=== PATIENT | female | born 1970 | race Caucasian/White ===

== ENCOUNTER 2021-01-21 12:45 | Emergency (ER) | payer MEDICAID ==
[2021-01-21 13:14] VITALS: BP 121/80; PULSE 71
[2021-01-21] MEDS ORDERED: Acetaminophen/oxyCODONE 325-5 MG Tab PO ONE (13:23)
--- NOTE | 2021-01-21 13:23 | EDM.PDOC ---
ED HPI GENERAL MEDICAL PROBLEM - General Chief Complaint: ENT Problem Stated Complaint: SORE THROAT Time Seen by Provider: 01/21/21 13:15 Source of Information: Reports: Patient History Limitations: Reports: No Limitations - History of Present Illness INITIAL COMMENTS - FREE TEXT/NARRATIVE: 50-year-old female presents to the ED with a 2-day history of gradually worsening throat pain. Pain is radiating up into both ears worse on the left side as compared to the right. Pain also radiates down the lateral aspect of her throat and anterior lateral neck. Very difficult and painful to swallow. She still has her tonsils. No noted fever. She is coughing intermittently but she states is due to accumulation of mucus in her throat not from her lungs. She recently finished a course of antibiotics i.e. cephalexin for cellulitis lower extremity. She had 3 tablets left over which she has taken in the last day. Therefore throat culture was not obtained Onset: Sudden Onset Date: 01/19/21 Duration: Hour(s): Location: Reports: Head (Anterior lateral neck bilaterally and up into her ears.), Face, Neck Quality: Reports: Ache (Throat pain), Burning, Stabbing (Sharp and stabbing) Severity: Moderate (7-8 out of 10) Improves with: Reports: None (Has tried Tylenol without much relief of the pain) Worsens with: Reports: Other (Trying to eat or swallow) Context: Denies: Activity, Exercise, Lifting, Sick Contact, Trauma, Other Associated Symptoms: Reports: Cough, cough w sputum (Bringing up some phlegm from the back of her throat.). Denies: No Other Symptoms, Confusion, Chest Pain, Diaphoresis, Fever/Chills, Headaches, Loss of Appetite, Malaise, Nausea/Vomiting, Rash, Seizure, Shortness of Breath, Syncope, Weakness Treatments [employer]: Reports: Acetaminophen Throat Pain Score (Numeric/FACES): 7 - Related Data Allergies Allergy/AdvReac Type Severity Reaction Status Date / Time latex Allergy Hives Verified 01/21/21 13:14 Home Meds: Home Meds Amoxicillin/Clavulanate K [Augmentin 500-125 MG] 1 tab PO BID #20 tablet 01/21/21 [Rx] oxyCODONE HCl/Acetaminophen [Percocet 5-325 mg Tablet] 1 - 2 each PO Q4H PRN #16 tablet 01/21/21 [Rx] Past Medical History - Past Health History Medical/Surgical History: Denies Medical/Surgical History Respiratory History: Reports: Sleep Apnea Musculoskeletal History: Reports: Osteoarthritis Endocrine/Metabolic History: Reports: Obesity/BMI 30+ Social & Family History - Living Situation & Occupation Living situation: Reports: Single Occupation: Unemployed ED ROS ENT - Review of Systems Review Of Systems: See Below Constitutional: Reports: Decreased Appetite. Denies: Fever, Chills, Malaise, Weakness, Fatigue, Weight Loss HEENT: Reports: Ear Pain (Pain radiates up into both ears worse on the left side as compared to the right), Throat Pain, Throat Swelling. Denies: Sinus Problem Respiratory: Reports: Shortness of Breath. Denies: Wheezing, Pleuritic Chest Pain (Chronically), Cough, Sputum, Hemoptysis Cardiovascular: Denies: Chest Pain, Blood Pressure Problem, Claudication, Dyspnea on Exertion, Edema, Lightheadedness, Orthopnea Endocrine: Reports: Fatigue GI/Abdominal: Reports: No Symptoms : Reports: Frequency, Incontinence (Stress incontinence), Urgency Musculoskeletal: Reports: Joint Pain (Knees hips low back neck at times) Skin: Reports: No Symptoms Neurological: Reports: No Symptoms Hematologic/Lymphatic: Reports: No Symptoms Immunologic: Reports: No Symptoms ED EXAM, ENT - Physical Exam Exam: See Below Exam Limited By: No Limitations General Appearance: Alert, WD/WN, No Apparent Distress, Other Eye Exam: Bilateral Eye: Normal Inspection, PERRL Mouth/Throat: Pharyngeal Erythema (Diffuse pharyngeal erythema particular across the soft palate and swollen uvula.), Throat Pain, Tonsillar Erythema, Tonsillar Exudates, Tonsillar Swelling, Other (Superficial almost ulcerations across the soft palate as if she is taking some Maalox that coated these areas. The only appreciated on the soft palate however) Head: Atraumatic, Normocephalic Neck: Normal Inspection, Supple, Non-Tender, Lymphadenopathy (L), Lymphadenopathy (R) Respiratory/Chest: No Respiratory Distress, Lungs Clear, Normal Breath Sounds, No Accessory Muscle Use (Mild submandibular), Other (Few transmitted sounds from the upper respiratory tree) Cardiovascular: Normal Peripheral Pulses, Regular Rate, Rhythm, No Edema, No Murmur, No Rub Course - Vital Signs Last Recorded V/S: Last Vital Signs Temp 36.2 C 09/17/21 13:11 Pulse 71 01/21/21 13:11 Resp 16 01/21/21 13:11 BP 121/80 01/21/21 13:11 Pulse Ox 94 L 01/21/21 13:11 - Orders/Labs/Meds Meds: Medications Discontinued Medications Generic Name Dose Route Start Last Admin Trade Name Freq PRN Reason Stop Dose Admin Ibuprofen 600 mg 01/21/21 13:24 Ibuprofen 600 Mg Tab PO 01/21/21 13:25 ONETIME ONE Oxycodone/Acetaminophen 1 tab 01/21/21 13:23 Acetaminophen/Oxycodone 325-5 Mg Tab PO 01/21/21 13:24 ONETIME ONE - Radiology Interpretation Free Text/Narrative:: 50-year-old female presents to the ED with sore throat for the last 48 hours with associated mild fever pain rating up into both ears and anterolateral neck. Exam reveals diffuse erythema of the soft palate and uvula with some almost 6 silver-white ulcerations posterior pharynx as if they have been coated with Maalox and may have underlying aphthous ulcer appearance. The tonsils are lobar are also inflamed with exudate with mild submandibular adenopathy bilaterally. Clinically this is tonsillitis. Strep screen was not obtained as the patient has been taking cephalexin 500 mg x 3 doses over the last day and a half. She will be treated with Augmentin 500/1 2 5 mg tablets twice daily for 10 days. Suggested Motrin 600 mg every 6 hours to relieve pain and inflammation. Percocet tabs 5/325 mg 1 tablet with the Motrin tablet every 6 hours as needed for pain relief and 14 toes were provided. Follow-up if not markedly improved in 72 hours time Departure - Departure Time of Disposition: 13:25 Disposition: Home, Self-Care 01 Condition: Fair Clinical Impression: Tonsillitis - Discharge Information *PRESCRIPTION DRUG MONITORING PROGRAM REVIEWED*: Not Applicable *COPY OF PRESCRIPTION DRUG MONITORING REPORT IN PATIENT TARSHA: Not Applicable Prescriptions: Amoxicillin/Clavulanate K [Augmentin 500-125 MG] 1 tab PO BID #20 tablet oxyCODONE HCl/Acetaminophen [Percocet 5-325 mg Tablet] 1 - 2 each PO Q4H PRN #16 tablet PRN Reason: pain relief. Instructions: Tonsillitis, [id number] Referrals: Juanita Osborne NP [Primary Care Provider] - Forms: ED Department Discharge Additional Instructions: Evaluation in the emergency room today in regards to development of a sore throat over the last few days associated with mild cough and pain referred up into ears due to throat infection. Examination reveals diffuse inflammation of the roof of your mouth and the uvula as well as both tonsils with exudate on them. Mildly swollen lymph nodes undersurface of your jaw. Ears do not show any signs of infection. Treatment is to be pain medication suggest Percocet 5/325 mg strength tablet with Motrin 600 mg tablet every 6 hours until pain is better which will be a couple of days. Antibiotic is to be Augmentin tablet 500/125 mg 1 tablet twice daily for the next 10 days to clear up infection. Expect improvement over the next 48 to 72 hours. Sepsis Event Note (ED) - Focused Exam Vital Signs: Vital Signs Temp Pulse Resp BP Pulse Ox 01/21/21 13:11 36.2 C 71 16 121/80 94 L
[2021-01-21] MEDS ORDERED: Ibuprofen 600 MG Tab PO ONE (13:24)
== END 2021-01-21 13:50 | disposition home or self-care (01) ==
LOC: JD.ED 12:45
DX: J03.90 Acute tonsillitis, unspecified (principal); E66.9 Obesity, unspecified; Z91.040 Latex allergy status; Z68.30 Body mass index [BMI] 30.0-30.9, adult
CPT/HCPCS: 99283; A9270

== ENCOUNTER 2022-12-09 21:36 | Emergency (ER) | payer MEDICAID ==
[2022-12-09 23:01] VITALS: BP 145/82; PULSE 70
== END 2022-12-09 23:01 | disposition home or self-care (01) ==
LOC: JD.ED 21:36
DX: S60.212A Contusion of left wrist, initial encounter (principal); S00.93XA Contusion of unspecified part of head, initial encounter; Z91.040 Latex allergy status; W22.8XXA Striking against or struck by other objects, initial encounter
CPT/HCPCS: 73110-26-LT; 73110-LT; 99283

== ENCOUNTER 2023-11-16 03:36 | Emergency (ER) | payer MEDICAID ==
[2023-11-16] MEDS: Sodium Chloride 0.9% 10 ML Syringe FLUSH PRN (04:00)
[2023-11-16 04:04] LABS: BASOPHILS ABSOLUTE AUTO 0.1 K/mm3 (0.0-0.2); BASOPHILS PERCENT AUTO 1.1 % (0.0-1.0); EOSINOPHILS ABSOLUTE AUTO 0.2 K/mm3 (0.0-0.4); EOSINOPHILS PERCENT AUTO 1.7 % (0.0-6.0); HEMATOCRIT 46.5 % (37.0-47.0); HEMOGLOBIN 14.7 gm/dl (12.0-16.0); IMMATURE GRAN ABSOLUTE AUTO 0.06 K/mm3 (0.00-0.05); IMMATURE GRAN PERCENT AUTO 0.6 % (0.0-0.4); LYMPHOCYTES PERCENT AUTO 31.9 % (24.0-44.0); MEAN CORPUSCULAR HEMOGLOBIN 28.6 pg (28.0-32.0); MEAN CORPUSCULAR HGB CONC 31.6 g/dl (32.0-36.0); MEAN CORPUSCULAR VOLUME 90.5 fl (83.0-99.0); MEAN PLATELET VOLUME 9.7 fl (9.4-12.3); MONOCYTES ABSOLUTE AUTO 0.7 K/mm3 (0.0-0.8); MONOCYTES PERCENT AUTO 6.9 % (0.0-8.0); NEUTROPHILS ABSOLUTE AUTO 5.5 K/mm3 (1.8-7.7); NEUTROPHILS PERCENT AUTO 57.8 % (41.0-71.0); PLATELET COUNT,PLT 250 K/mm3 (150-400); RED BLOOD CELL COUNT 5.14 M/mm3 (4.10-5.30); WHITE BLOOD CELL COUNT,WBC 9.52 K/mm3 (3.9-11.3)
[2023-11-16] MEDS: Sodium Chloride 0.9% 1,000 ML IV ONE (04:10)
[2023-11-16 04:13] LABS: APPEARANCE,URINE CLEAR (Clear); BILIRUBIN,URINE NEGATIVE (Negative); COLOR,URINE YELLOW (Yellow); GLUCOSE,URINE NEGATIVE (Negative); KETONES,URINE NEGATIVE (Negative); LEUKOCYTE ESTERASE,URINE NEGATIVE (Negative); NITRITE,URINE NEGATIVE (Negative); OCCULT BLOOD,URINE NEGATIVE (Negative); PROTEIN,URINE TRACE (Negative); UROBILINOGEN,URINE 0.2 (0.2-1.0)
[2023-11-16 04:24] LABS: BARBITURATE SCREEN,URINE NEGATIVE (CUTOFF=200); BENZODIAZEPINES SCREEN,URINE NEGATIVE (CUTOFF=150); BUPRENORPHINE SCREEN,URINE NEGATIVE (CUTOFF=10); METHADONE SCREEN, URINE NEGATIVE (CUTOFF=200); METHAMPHETAMINES SCREEN, URINE NEGATIVE (CUTOFF=500); OXYCODONE SCREEN,URINE NEGATIVE (CUT0FF=100); THC SCREEN,URINE 20 NG/ML NEGATIVE (CUTOFF=50)
[2023-11-16 04:27] LABS: BACTERIA,URINE FEW /hpf (FEW); EPITHELIAL CELLS,URINE 0-5 /hpf (0-5); RBC,URINE 0-5 /hpf (0-5); WBC,URINE 0-5 /hpf (0-5)
[2023-11-16 04:28] LABS: MUCUS,URINE FEW /hpf (FEW)
[2023-11-16 04:30] LABS: AMPHETAMINES SCREEN, URINE NEGATIVE (CUTOFF=500)
[2023-11-16 04:41] LABS: A/G RATIO 1.3 (1-2); ALBUMIN 4.1 g/dl (3.4-5.0); ANION GAP 17.3 (5-15); BILIRUBIN TOTAL 0.9 mg/dL (0.2-1.0); CALCIUM 9.1 mg/dL (8.5-10.1); EST CRCL DRUG DOSING (CG) 51.46 mL/min; MAGNESIUM 1.8 mg/dL (1.8-2.4); POTASSIUM,K 3.3 mEq/L (3.5-5.1); PROTEIN TOTAL,TP 7.3 g/dl (6.4-8.2); TSH 2.865 uIU/mL (0.358-3.74)
[2023-11-16 05:30] LABS: BICARBONATE,ARTERIAL 22.3 meq/L (22.0-26.0); O2 SATURATION ARTERIAL 96.8 % (96.0-97.0); PCO2 ARTERIAL 38.3 mmHg (35.0-45.0)
[2023-11-16 08:11] LABS: CORONAVIRUS COVID-19 NAA NEGATIVE (NEGATIVE); INFLUENZA A NAA NEGATIVE (NEGATIVE); RESPIRATORY SYNCYTIAL VIR NAA NEGATIVE (NEGATIVE)
[2023-11-16 10:32] LABS: A/G RATIO 1.2 (1-2); ALBUMIN 3.4 g/dl (3.4-5.0); ANION GAP 18.3 (5-15); BILIRUBIN TOTAL 2.1 mg/dL (0.2-1.0); BUN/CREATININE RATIO 18.9 (14-18); CALCIUM 8.5 mg/dL (8.5-10.1); CREATININE 0.9 mg/dL (0.55-1.02); EST CRCL DRUG DOSING (CG) 57.17 mL/min; POTASSIUM,K 3.3 mEq/L (3.5-5.1); PROTEIN TOTAL,TP 6.3 g/dl (6.4-8.2)
[2023-11-16 17:36] VITALS: BP 134/64; PULSE 59
== END 2023-11-16 20:51 | disposition left against medical advice (07) ==
LOC: JD.ED 03:36
DX: T39.312A Poisoning by propionic acid derivatives, intentional self-harm, initial encounter (principal); E66.9 Obesity, unspecified; Z68.44 Body mass index [BMI] 60.0-69.9, adult; Z91.040 Latex allergy status
CPT/HCPCS: 0241U; 36415; 36600; 80053; 80143; 80179; 80306; 80307; 81001; 82803; 83735; 84443; 85025; 93005; 99285; J3490; J7030